=== PATIENT | male | born 1955 | race African-American/Black ===

== ENCOUNTER 2018-07-22 22:14 | Emergency (ER) | payer OTHER ==
[2018-07-22 22:20] VITALS: BP 105/78; PULSE 104; TEMP 98.2; BMI 21.7
--- NOTE | 2018-07-23 02:50 | PDOC ---
History of Present Illness - General Chief Complaint: Loss of Appetite Stated Complaint: Alcohol intoxication Time Seen by Provider: 07/23/18 02:29 - History of Present Illness Initial Comments: 62 yo M w a hx of alcohol abuse presents to the ER brought in by his brother and sister who state that he has not been able to eat for the past 2 weeks and they are very concerned. The patient reports that he has been eating normally and he does not want to be here in the ER. He admits to drinking 12 beers a day. He only had 1 beer today before presentation. He also admits to smoking at least 1 PPD. He denies any chest pain, SOB, difficulty breathing. Denies recent fevers, chills or infections. Denies any urinary or bowel complaints. PCP: None Allergies: NKA, NKDA Social Hx: 12 beers/day. Smokes 1 PPD. Denies illicit substance usage. Past History - Past Medical History Allergies/Adverse Reactions: Allergies Allergy/AdvReac Type Severity Reaction Status Date / Time No Known Allergies Allergy Verified 07/22/18 22:20 COPD: No - Suicide/Smoking/Psychosocial Hx Smoking History: Never smoked Review of Systems - Review of Systems Comments:: CONSTITUTIONAL: Present: Weight loss Absent: fever, no chills, no fatigue EYES: Absent: visual changes ENT: Absent: ear pain, no sore throat CARDIOVASCULAR: Absent: chest pain, no palpitations RESPIRATORY: Absent: cough, no SOB GI: Absent: abdominal pain, no nausea, no vomiting, no constipation, no diarrhea GENITOURINARY: Absent: dysuria, no frequency, no hematuria MUSKULOSKELETAL: Absent: back pain, no arthralgia, no myalgia SKIN: Absent: rash NEURO: Absent: headache *Physical Exam - Vital Signs Last Vital Signs Temp Pulse Resp BP Pulse Ox 98.2 F 104 H 18 105/78 100 07/22/18 22:16 07/22/18 22:16 07/22/18 22:16 07/22/18 22:16 07/22/18 22:16 - Physical Exam Comments: GENERAL: No apparent distress. Patient smells of urine and cigarettes. HEENT: Normocephalic, atraumatic. PERRL, EOM intact. CARDIOVASCULAR: Normal S1, S2. tachycardic rate and regular rhythm. PULMONARY: Clear to auscultation bilaterally. ABDOMEN: Soft, non-distended, non-tender. EXTREMITIES: Normal ROM in all four extremities. No gross deformities. SKIN: Warm, dry. No rash NEUROLOGICAL: No focal neurological deficits. ED Treatment Course - LABORATORY CBC & Chemistry Diagram: 07/23/18 03:29 07/23/18 03:29 Medical Decision Making - Medical Decision Making 62 yo M w a hx of alcohol abuse presents to the ER brought in by his brother and sister who state that he has not been able to eat for the past 2 weeks and they are very concerned. DD includes but not limited to: Liver failure, cirrhosis, dehydration, alcoholic intoxication Plan: Basic labs, IV hydration, PO challenge. Labs unremarkable. Patient ate a full sandwich and drank a carton of milk. Will DC with PCP [facility]. *DC/Admit/Observation/Transfer Diagnosis at time of Disposition: Unable to eat - Discharge Dispostion Disposition: HOME Condition at time of disposition: Improved Decision to Admit order: No - Referrals Referrals: Fco Mccord MD [Staff Physician] - - Patient Instructions Printed Discharge Instructions: DI for Alcohol Abuse Additional Instructions: You came into the ER because you have not been able to eat. We did some bloodwork and saw that your liver enzymes were within normal limits. It is very important for you to eat and drink normally otherwise you will get very sick! [facility] and [facility] the detox facility. Please make sure to schedule an appt with your primary care doc in the next 3 to 5 days to make sure you are getting better. Come back to the ER if you start vomiting, experience abdominal pain or have any other new or worsening concerns. Print Language: LIBERIAN - Post Discharge Activity
[2018-07-23] MEDS ORDERED: SODIUM CHLORIDE 0.9% 500 ML INFUS.BAG IV ONE (03:22)
[2018-07-23 03:43] LABS: BASO % 1.4 % (0-2.0); EOS % 0.2 % (0-4.5); HEMATOCRIT 42.6 % (35.4-49); HEMOGLOBIN 14.6 GM/dL (11.7-16.9); LYMPH % 17.3 % (8-40); MCH 31.8 pg (25.7-33.7); MCHC 34.3 g/dl (32.0-35.9); MEAN CELL VOLUME 92.9 fl (80-96); MEAN PLT VOLUME 8.5 fl (7.5-11.1); MONO % 10.3 % (3.8-10.2); NEUT % 70.8 % (42.8-82.8); PLATELET COUNT 264 K/MM3 (134-434); RBC 4.58 M/mm3 (4.00-5.60); RDW 12.9 % (11.9-15.9); WHITE BLOOD COUNT 8.7 K/mm3 (4.0-10.0)
[2018-07-23 03:54] LABS: INR 1.18 (0.83-1.09); PROTHROMBIN TIME (PATIENT) 13.9 SEC (9.7-13.0)
[2018-07-23 04:16] LABS: ALBUMIN 2.8 g/dl (3.4-5.0); ALK PHOS 77 U/L (45-117); ANION GAP 9 MMOL/L (8-16); BILIRUBIN,TOTAL 0.7 mg/dL (0.2-1); BLOOD UREA NITROGEN 7 mg/dL (7-18); CALCIUM 9.3 mg/dL (8.5-10.1); CHLORIDE 95 mmol/L (98-107); CO2 27 mmol/L (21-32); CREATININE 0.9 mg/dL (0.55-1.3); GLUCOSE,RANDOM 112 mg/dL (74-106); MAGNESIUM 2.2 mg/dL (1.8-2.4); PHOSPHOROUS 4.1 mg/dL (2.5-4.9); POTASSIUM 4.1 mmol/L (3.5-5.1); SGOT/AST 35 U/L (15-37); SGPT/ALT 23 U/L (13-61); SODIUM 130 mmol/L (136-145); TOT PROT 9.5 g/dl (6.4-8.2)
[2018-07-23 05:07] LABS: CORRECTED WBC 7.02 K/mm3; PLATELET ESTIMATE NORMAL
--- NOTE | 2018-07-23 05:49 | PDOC ---
Attending Attestation - Resident Resident Name: Vinay Stapleton - ED Attending Attestation I have performed the following: I have examined & evaluated the patient, The case was reviewed & discussed with the resident, I agree w/resident's findings & plan, Exceptions are as noted - HPI HPI: 07/23/18 08:13 62M daily drinker brought in by family stating he has decreased appetite. Pt denies any complaints. Drinks up to 12 beers daily, denies seizures - Physicial Exam PE: 07/23/18 08:11 NCAT, PERRL, no fasciculation, no tremors no focal deficits, gait stable - Medical Decision Making 07/23/18 08:11 Family was concern that patient has no appetite which patient denies. He is a chronic drinker, usually drinking 12 beers labs significant for [id number], consider beer potomania. Pt tolerating po, amenable to detox
== END 2018-07-23 05:15 | disposition home or self-care (01) ==
LOC: JER 22:14
DX: F50.89 Other specified eating disorder (principal); F10.10 Alcohol abuse, uncomplicated; F17.210 Nicotine dependence, cigarettes, uncomplicated
CPT/HCPCS: 36415; 80053; 82746; 83735; 84100; 85025; 85610; 99283-25